=== PATIENT | male | born 1995 | race Caucasian/White ===

== ENCOUNTER 2022-09-09 21:52 | Emergency (ER) | payer BC ==
[2022-09-10] MEDS ORDERED: Fluorescein 1 MG Ophth Strip EYELF ONE (02:50)
[2022-09-10] MEDS ORDERED: Proparacaine 0.5% Ophth Soln 15 ML Bottle EYERT ONE (02:51)
[2022-09-10] MEDS ORDERED: Erythromycin Base 0.5% Ophth Oint 1 GM Tube EYELF ONE (03:46)
[2022-09-10] MEDS ORDERED: Acetaminophen/HYDROcodone 325-5 MG Tab PO ONE (03:46)
== END 2022-09-10 04:35 | disposition home or self-care (01) ==
LOC: JD.ED 21:52
DX: T15.02XA Foreign body in cornea, left eye, initial encounter (principal); Z86.16 Personal history of COVID-19
CPT/HCPCS: 65220; 99283; A9270; J3490